=== PATIENT | female | born 1950 | race Caucasian/White ===

== ENCOUNTER → 2018-04-20 | Outpatient (CLI) | payer MEDICARE, OTHER | LOC: M WHC 08:30 | DX: Z01.419 Encounter for gynecological examination (general) (routine) without abnormal findings (principal); Z12.31 Encounter for screening mammogram for malignant neoplasm of breast (principal); R92.1 Mammographic calcification found on diagnostic imaging of breast; Z12.12 Encounter for screening for malignant neoplasm of rectum | CPT/HCPCS: 77067 ==

== ENCOUNTER 2018-05-20 09:13 | Outpatient (RCR) | payer MEDICARE, OTHER | END 2018-05-24 | LOC: M PT 09:13 | PROVIDERS: ATTEND Nurse Practitioner Family | DX: N81.4 Uterovaginal prolapse, unspecified (principal) | CPT/HCPCS: 97110; 97161; G8978; G8979 ==

== ENCOUNTER 2018-06-22 12:30 | Outpatient (RCR) | payer MEDICARE, OTHER | END 2018-06-24 | LOC: M PT 12:30 | PROVIDERS: ATTEND Nurse Practitioner Family | DX: N81.4 Uterovaginal prolapse, unspecified (principal) ==

== ENCOUNTER → 2019-02-24 | Outpatient (REF) | payer MEDICARE, OTHER ==
[2019-02-24 17:00] LABS: INFLUENZA A AMPLIFICATION NEGATIVE (NEGATIVE); INFLUENZA B AMPLIFICATION NEGATIVE (NEGATIVE)
== END ==
LOC: M LAB REF 16:11
PROVIDERS: ATTEND Registered Nurse
DX: J06.9 Acute upper respiratory infection, unspecified (principal)

== ENCOUNTER → 2019-04-25 | Outpatient (CLI) | payer MEDICARE, OTHER ==
--- NOTE | 2019-04-25 09:17 | REPMRS ---
Patient History The patient states she had a clinical breast exam in April 2019.No known family history of cancer. 3D TOMOSYNTHESIS WAS PERFORMED. [facility] lifetime risk for breast cancer is 7.4%. Digital Woman Screen Mammo: April 25, 2019 - Exam #: [id number] Bilateral CC and MLO view(s) were taken. Technologist: Silvina Quevedo, Technologist Prior study comparison: April 20, 2018, bilateral digital woman screen mammo performed at [facility]. March 12, 2016, digital woman screen mammo performed at [facility]. FINDINGS: The breast tissue is heterogeneously dense. This may lower the sensitivity of mammography. There has been no change in the appearance of the mammogram from the prior studies. There is a moderate amount of residual fibroglandular tissue which is fairly symmetric. There is no interval development of dominant mass, areas of architectural distortion, or clustered microcalcification typical of malignancy. Assessment: BI-RADS/ACR category 1 mammogram. Negative Mammogram. Recommendation Routine screening mammogram in 1 year (for women over age 40). This mammogram was interpreted with the aid of an FDA-approved computer-aided dectection system. Electronically Signed By: Rangel Umana MD 04/25/19 0916
--- NOTE | 2019-04-28 10:34 | DEXA ---
AP SPINE L1 - L4 1.137 -0.5 1.2 LT FEMUR TOTAL 0.776 -1.8 -0.6 LT NECK 0.758 -2.0 -0.5 RT FEMUR TOTAL 0.817 -1.5 -0.2 RT NECK 0.787 -1.8 -0.3 TOTAL BODY TOTAL OTHER COMMENTS: Normal bone densitometry of the spine. There is low bone density of the hips. The increased density of the spine does not represent significant change. The decreased density of the left hip does not represent a significant change. The decreased density of the right hip does represent a significant change. The density of the spine is decreased 7.3% since the initial exam on 01/06/2005. The spine density has increased 0.2% since the most recent exam on 03/12/2016. The density of the left hip has decreased 13.1% since the initial exam on 01/06/2005. The density of the left hip has decreased 1.6% since the most recent exam on 03/12/2016. The density of the right hip has decreased 11.4% since the initial exam on 01/06/2005. The density of the right hip has decreased 4.0% since the most recent exam on 03/12/2016. FOLLOW-UP: Recommendation for the next bone density exam: 2 years. RON
== END ==
LOC: M WHC 08:06
PROVIDERS: ATTEND Nurse Practitioner Family
DX: Z01.419 Encounter for gynecological examination (general) (routine) without abnormal findings (principal); Z12.31 Encounter for screening mammogram for malignant neoplasm of breast; M85.88 Other specified disorders of bone density and structure, other site; Z12.12 Encounter for screening for malignant neoplasm of rectum
CPT/HCPCS: 77063; 77067; 77080; 82270; G0101

== ENCOUNTER → 2020-04-26 | Outpatient (CLI) | payer MEDICARE, OTHER ==
--- NOTE | 2020-04-26 09:35 | REPMRS ---
Patient History The patient states she had a clinical breast exam in 2019. No known family history of cancer. Digital Woman Screen Mammo: April 26, 2020 - Exam #: [id number] Bilateral CC and MLO view(s) were taken. Technologist: Jennie Bright, Technologist Prior study comparison: April 25, 2019, bilateral digital woman screen mammo performed at [facility]. April 20, 2018, bilateral digital woman screen mammo performed at [facility]. March 12, 2016, digital woman screen mammo performed at [facility]. FINDINGS: The breast tissue is heterogeneously dense. This may lower the sensitivity of mammography. The Volpara volumetric breast density category is: C. There is a moderate amount of heterogeneously dense fibroglandular tissue which is fairly symmetric. There is no interval development of dominant mass, architectural distortion, or grouped microcalcification typical of malignancy. There has been no change in the appearance of the mammogram from the prior studies. 3-D tomosynthesis shows no additional findings. Assessment: BI-RADS/ACR category 1 mammogram. Negative Mammogram. Recommendation Routine screening mammogram of both breasts in 1 year (for women over age 40). This patient's [facility] Lifetime Breast Cancer RIsk is estimated at 7.0 %. This mammogram was interpreted with the aid of an FDA-approved computer-aided dectection system. Electronically Signed By: Ernesto Bill MD 04/26/20 0909
== END ==
LOC: M WHC 08:03
PROVIDERS: ATTEND Nurse Practitioner Family
DX: Z12.31 Encounter for screening mammogram for malignant neoplasm of breast (principal)
CPT/HCPCS: 77063; 77067; G0463

== ENCOUNTER → 2021-04-30 | Outpatient (CLI) | payer MEDICARE, OTHER | LOC: M WHC 08:03 | PROVIDERS: ATTEND Nurse Practitioner Women's Health | DX: Z01.419 Encounter for gynecological examination (general) (routine) without abnormal findings (principal); Z12.31 Encounter for screening mammogram for malignant neoplasm of breast; Z78.0 Asymptomatic menopausal state; M85.88 Other specified disorders of bone density and structure, other site; R92.1 Mammographic calcification found on diagnostic imaging of breast | CPT/HCPCS: 77063; 77067; 77080; G0101 ==

== ENCOUNTER → 2021-05-15 | Outpatient (CLI) | payer MEDICARE, OTHER ==
--- NOTE | 2021-05-15 11:30 | REP ---
INDICATION: RIGHT BREAST ADD VIEWS. COMPARISON: 04/30/2021 as well as other prior exams. TECHNIQUE: Magnification views of the right breast are performed. FINDINGS: There is a cluster of pleomorphic microcalcifications confirmed in the posterior upper outer quadrant of the right breast. Another cluster of pleomorphic microcalcifications is visualized in the mid 3rd of the breast directly posterior to the nipple. IMPRESSION: BIRADS/ACR category 4, suspicious. Two new clusters of microcalcifications in the right breast for which stereotactic biopsy is recommended. This mammogram was interpreted with the aid of an FDA-approved computer-aided detection system. The patient letter being requested is M4. RECOMMENDATION: Recommend stereotactic biopsy of 2 clusters of microcalcifications in the right breast as discussed above. <Electronically signed by Rangel Umana > 05/15/21 1126
== END ==
LOC: M WHC 09:54
PROVIDERS: ATTEND Nurse Practitioner Women's Health
DX: R92.0 Mammographic microcalcification found on diagnostic imaging of breast (principal)
CPT/HCPCS: 77065; G0279

== ENCOUNTER → 2022-06-20 | Outpatient (REF) | payer MEDICARE, OTHER ==
[2022-06-20 14:22] LABS: APPEARANCE, URINE MANUAL HAZY (CLEAR); COLOR, URINE MANUAL YELLOW (YELLOW)
[2022-06-20 14:23] LABS: BILIRUBIN, URINE MANUAL NEGATIVE (NEGATIVE); BLOOD URINE MANUAL TRACE (NEGATIVE); GLUCOSE, URINE (UA) MANUAL NEGATIVE (NEGATIVE); KETONE, URINE MANUAL NEGATIVE (NEGATIVE); LEUKOCYTE ESTERASE, URINE MAN POSITIVE (NEGATIVE); NITRITE, URINE MANUAL NEGATIVE (NEGATIVE); PROTEIN, URINE MANUAL NEGATIVE (NEGATIVE); SPECIFIC GRAVITY,URINE MANUAL 1.015 (1.002-1.035); UROBILINOGEN, URINE MANUAL NORMAL (NORMAL)
[2022-06-20 14:35] LABS: BACTERIA, URINE LARGE AMOUNT; HYALINE CAST, URINE NONE SEEN /lpf (0-1); SQUAMOUS EPITHELIAL CELL URINE SMALL AMOUNT /hpf (SMALL AMT)
== END ==
LOC: M PLALAB 10:16
PROVIDERS: ATTEND Advanced Practice Midwife
DX: R30.0 Dysuria (principal)

== ENCOUNTER → 2022-07-07 | Outpatient (CLI) | payer OTHER, MEDICARE | LOC: M WHC 08:32 | PROVIDERS: ATTEND Advanced Practice Midwife | DX: N81.4 Uterovaginal prolapse, unspecified (principal) ==

== ENCOUNTER → 2022-12-17 | Outpatient (REF) | payer MEDICARE, OTHER ==
[2022-12-17 17:37] LABS: BACTERIA, URINE AUTO NEGATIVE (NEGATIVE); MUCUS, URINE SMALL (NEGATIVE); RBC, URINE AUTO 2 /HPF (0-3); SQUAMOUS EPITHELIAL CELL UR AU 1 /HPF (0-6); TRANSITIONAL EPITHELIAL AUTO <1 /HPF; WBC, URINE AUTO 6 /HPF (0-3)
== END ==
LOC: M SMT 16:53
PROVIDERS: ATTEND Specialist
DX: Z01.818 Encounter for other preprocedural examination (principal)

== ENCOUNTER → 2023-01-12 | Outpatient (REF) | payer MEDICARE, OTHER ==
[2023-01-12 15:49] LABS: APPEARANCE, URINE CLEAR (CLEAR); BACTERIA, URINE AUTO NEGATIVE (NEGATIVE); BILIRUBIN, URINE AUTO NEGATIVE (NEGATIVE); BLOOD, URINE BLOOD 1+ (NEGATIVE); COLOR, URINE STRAW (YELLOW); GLUCOSE, URINE (UA) AUTO NEGATIVE (NEGATIVE); KETONE, URINE AUTO NEGATIVE (NEGATIVE); LEUKOCYTE ESTERASE, URINE AUTO 3+ (NEGATIVE); NITRITE, URINE AUTO NEGATIVE (NEGATIVE); PROTEIN, URINE AUTO NEGATIVE (NEGATIVE); RBC, URINE AUTO 1 /HPF (0-3); SPECIFIC GRAVITY URINE AUTO 1.006 (1.002-1.035); SQUAMOUS EPITHELIAL CELL UR AU 0 /HPF (0-6); UROBILINOGEN, URINE AUTO 0.2 mg/dL (0.0-2.0); WBC, URINE AUTO 77 /HPF (0-3)
== END ==
LOC: M SFHCWAGY 15:21
PROVIDERS: ATTEND Advanced Practice Midwife
DX: R30.0 Dysuria (principal)

== ENCOUNTER → 2023-01-28 | Outpatient (REF) | payer MEDICARE, OTHER | LOC: M SFHCDERM 14:07 | PROVIDERS: ATTEND Physician Assistant | DX: L57.0 Actinic keratosis (principal) ==

== ENCOUNTER → 2023-04-15 | Outpatient (CLI) | payer MEDICARE, OTHER ==
[~2023-04-15] MED LIST: CALC600C3 PO; EXCETAB44 PO
[2023-04-15 09:23] LABS: HEMOGLOBIN 13.7 g/dl (12.0-15.5); MEAN CORPUSCULAR HEMOGLOBIN 30.4 pg (27.0-33.0); MEAN CORPUSCULAR HGB CONC 33.4 g/dl (32.0-36.5); MEAN CORPUSCULAR VOLUME 90.9 fl (80.0-96.0); PLATELET COUNT, AUTOMATED 262 10^3/uL (150-450); RED BLOOD COUNT 4.51 10^6/uL (4.00-5.40); WHITE BLOOD COUNT 6.7 10^3/uL (4.0-10.0)
[2023-04-15 09:50] LABS: BLOOD UREA NITROGEN 23 MG/DL (9-23); CALCIUM LEVEL 9.3 MG/DL (8.3-10.6); CARBON DIOXIDE LEVEL 31 MMOL/L (20-31); CHLORIDE LEVEL 105 MMOL/L (98-107); CREATININE FOR GFR 0.65 MG/DL (0.55-1.30); GLOMERULAR FILTRATION RATE > 60.0 (>39); GLUCOSE, FASTING 91 MG/DL (74-106); POTASSIUM SERUM 3.7 MMOL/L (3.5-5.1); SODIUM LEVEL 141 MMOL/L (136-145)
== END ==
LOC: M RAD 08:50
PROVIDERS: ATTEND Specialist
DX: Z01.818 Encounter for other preprocedural examination (principal)

== ENCOUNTER → 2023-04-17 | Outpatient (REF) | payer MEDICARE, OTHER ==
[2023-04-17 12:53] LABS: BACTERIA, URINE AUTO 2+ (NEGATIVE); RBC, URINE AUTO 0 /HPF (0-3); RENAL EPITHELIAL CELLS 1 /HPF; SQUAMOUS EPITHELIAL CELL UR AU 1 /HPF (0-6); WBC, URINE AUTO 8 /HPF (0-3)
== END ==
LOC: M LAB REF 12:26
PROVIDERS: ATTEND Specialist
DX: Z01.818 Encounter for other preprocedural examination (principal); N81.9 Female genital prolapse, unspecified; N39.3 Stress incontinence (female) (male)

== ENCOUNTER 2023-04-27 10:00 | Observation (INO) | payer MEDICARE, OTHER ==
[~2023-04-27] VITALS: Ht 167.6 cm; Wt 53.1 kg
[2023-04-27] MEDS: METAMUCIL (PSYLLIUM) PACKET PO SCH (09:00)
[2023-04-27] MEDS ORDERED: ONDANSETRON 4MG 2ML VIAL As Ordered ONE (10:32)
[2023-04-27] MEDS ORDERED: propofoL 200 MG/20 ML VIAL As Ordered ONE (10:32)
[2023-04-27] MEDS ORDERED: LIDOCAINE 2% 100MG/5ML SDV (FOR ANES.) As Ordered ONE (10:32)
[2023-04-27] MEDS ORDERED: ROCURONIUM BROMIDE 50MG/5ML VIAL As Ordered ONE (10:32)
[2023-04-27] MEDS ORDERED: SUGAMMADEX SODIUM 500 MG/5 ML VIAL (BRIDION) As Ordered ONE (10:32)
[2023-04-27] MEDS ORDERED: KETOROLAC 60MG 2ML VIAL As Ordered ONE (10:32)
[2023-04-27] MEDS ORDERED: MIDAZOLAM INJ 2MG/2ML VIAL As Ordered ONE (10:33)
[2023-04-27] MEDS ORDERED: fentaNYL 100 MCG/2 ML INJECTION As Ordered ONE (10:33)
[2023-04-27] MEDS ORDERED: LR 1,000 ML IV SCH (10:35)
[2023-04-27] MEDS ORDERED: META28.32 PO (10:39)
[2023-04-27] MEDS ORDERED: ROLA1CHW2 PO (10:39)
[2023-04-27] MEDS ORDERED: [UNRECOGNIZED DRUG - CODE] PO (10:39)
[2023-04-27] MEDS ORDERED: CLINDAMYCIN 900 MG in IV 1 EA IV ONE (10:50)
[2023-04-27] MEDS ORDERED: CIPROFLOXACIN 400 MG in IV 1 EA IV ONE (10:50)
[2023-04-27] MEDS ORDERED: PHEN-501 (11:20)
[2023-04-27 11:23] LABS: HEMATOCRIT 41.9 % (36.0-47.0); HEMOGLOBIN 13.9 g/dl (12.0-15.5); MEAN CORPUSCULAR HEMOGLOBIN 30.1 pg (27.0-33.0); MEAN CORPUSCULAR HGB CONC 33.2 g/dl (32.0-36.5); MEAN CORPUSCULAR VOLUME 90.7 fl (80.0-96.0); PLATELET COUNT, AUTOMATED 307 10^3/uL (150-450); RED BLOOD COUNT 4.62 10^6/uL (4.00-5.40); WHITE BLOOD COUNT 7.8 10^3/uL (4.0-10.0)
[2023-04-27] MEDS ORDERED: ACETAMINOPHEN 1000MG 100ML IV BAG As Ordered ONE (13:59)
[2023-04-27] MEDS ORDERED: ESTROGENS VAGINAL CREAM 30GM As Ordered ONE (14:39)
[2023-04-27] MEDS ORDERED: GENTAMICIN SULF 80MG/2ML VIAL As Ordered ONE (14:39)
[2023-04-27] MEDS ORDERED: FLUORESCEIN 10% (100MG/ML) 5ML VIAL As Ordered ONE (15:05)
[2023-04-27] MEDS ORDERED: oxyCODONE 5MG TAB PO PRN (16:25)
[2023-04-27] MEDS ORDERED: ONDANSETRON 4MG 2ML VIAL IV PRN (16:25)
[2023-04-27] MEDS ORDERED: fentaNYL 100 MCG/2 ML INJECTION IV PRN (16:25)
[2023-04-27] MEDS ORDERED: EXCEDRIN MIGRAINE TABLET PO PRN (16:45)
[2023-04-27] MEDS ORDERED: PHENAZOPYRIDINE 100 MG TAB PO PRN (16:45)
[2023-04-27] MEDS ORDERED: BACT800T5 PO (16:48)
[2023-04-27] MEDS ORDERED: OXYC-517 PO (16:48)
[2023-04-27] MEDS ORDERED: PERCOCET 5MG/325MG TAB PO PRN (17:25)
[2023-04-27 18:00] VITALS: BP 125/59; TEMP 97; O2SAT 95
[2023-04-27] MEDS: PERCOCET 5MG/325MG TAB PO PRN ×2 (18:43→22:54)
[2023-04-27 19:30] VITALS: BP 129/58; TEMP 96.6; O2SAT 96
[2023-04-27 20:30] VITALS: BP 120/56; TEMP 97; O2SAT 95
[2023-04-27] MEDS: BACTRIM 160MG/800MG DS TAB PO SCH (20:32)
[2023-04-27 21:30] VITALS: BP 120/77; TEMP 97; O2SAT 92
[2023-04-27 22:00] VITALS: BP 114/53; TEMP 96.6; O2SAT 95
[2023-04-28 02:00] VITALS: BP 112/50; TEMP 97; O2SAT 96
[2023-04-28] MEDS: PERCOCET 5MG/325MG TAB PO PRN ×3 (03:29→13:16)
[2023-04-28 06:00] VITALS: BP 115/50; TEMP 96.4; O2SAT 93
[2023-04-28 08:30] VITALS: BP 120/58; TEMP 98.1; O2SAT 93
[2023-04-28] MEDS: BACTRIM 160MG/800MG DS TAB PO SCH (08:58)
[2023-04-28] MEDS: METAMUCIL (PSYLLIUM) PACKET PO SCH (08:58)
[2023-04-28] MEDS ORDERED: ACETAMINOPHEN 500 MG TAB PO PRN (09:05)
[2023-04-28 10:15] VITALS: BP 122/54; TEMP 98.1; O2SAT 94
[2023-04-28 13:16] VITALS: O2SAT 94
[2023-04-28 14:00] VITALS: BP 142/62; TEMP 98.8
== END 2023-04-28 14:30 | disposition home or self-care (01) ==
LOC: M SDC 10:00 → M MS5PR 10:01
PROVIDERS: ADMIT Obstetrics & Gynecology; ATTEND Obstetrics & Gynecology
DX: N81.3 Complete uterovaginal prolapse (principal); Z88.0 Allergy status to penicillin; Z88.1 Allergy status to other antibiotic agents; Z79.899 Other long term (current) drug therapy
CPT/HCPCS: 36415; 57265; 57282; 58571; 85027; 86850; 86900; 86901; 87635; 88307; C1762; G0378; J0131; J0665; J0737; J0744; J1100; J1580; J1885; J2250; J2405; J3010; S2900

== ENCOUNTER → 2024-10-12 | Outpatient (REF) | payer MEDICARE, OTHER ==
[~2024-10-12] MED LIST changes: +ACET-1599 PO; +BACT800T5 PO; -EXCETAB44 PO; +META28.32 PO; +OXYC-517 PO; +PHEN-501; +ROLA1CHW2 PO; +[UNRECOGNIZED DRUG - CODE] PO
== END ==
LOC: M LAB REF 17:01
PROVIDERS: ATTEND Physician Assistant Medical
DX: N39.0 Urinary tract infection, site not specified (principal)

== ENCOUNTER → 2025-01-03 | Outpatient (REF) | payer MEDICARE, OTHER ==
[2025-01-03 13:25] LABS: VITAMIN B12 LEVEL 516.0 PG/ML (211-911)
== END ==
LOC: M LAB REF 12:19
PROVIDERS: ATTEND Family Medicine
DX: R20.2 Paresthesia of skin (principal)